=== PATIENT | female | born 1990 | race Caucasian/White ===

== ENCOUNTER 2020-07-04 12:50 | Emergency (ER) | payer OTHER ==
[~2020-07-04 12:50] MED LIST: KEFLEX CAP 500500 MG PO
[2020-07-04 13:29] LABS: HEMOGLOBIN 11.7 gm/dl (12.3-15.3); RED BLOOD COUNT 3.95 M/UL (4.00-5.10); WHITE BLOOD COUNT 10.9 K/UL (4.5-11.0)
[2020-07-04 13:50] LABS: BUN/CREATININE RATIO 23 (0-10)
[2020-07-04] MEDS ORDERED: COLACE100 MG PO (15:43)
[2020-07-04] MEDS ORDERED: ADULT GLYCERIN1 EACH PR (15:43)
[2020-07-04] MEDS ORDERED: PROTONIX40 MG PO (15:43)
[2020-07-04] MEDS ORDERED: ZOFRAN ODT 4 MG4 MG PO (15:43)
== END 2020-07-04 18:20 | disposition home or self-care (01) ==
LOC: ER1 12:50
PROVIDERS: Physician Assistant
DX: K20.90 Esophagitis, unspecified without bleeding (principal); K59.00 Constipation, unspecified
CPT/HCPCS: 71045; 80053; 81001; 83605; 83690; 84703; 85025; 87086; 96374; 96375; 99284; C9113; Q9967

== ENCOUNTER 2021-06-04 10:46 | Emergency (ER) | payer OTHER ==
[~2021-06-04 10:46] MED LIST changes: +ADULT GLYCERIN1 EACH PR; +COLACE100 MG PO; +PROTONIX40 MG PO; +ZOFRAN ODT 4 MG4 MG PO
[2021-06-04 12:33] LABS: HEMOGLOBIN 9.3 gm/dl (12.3-15.3); RED BLOOD COUNT 4.6 M/UL (4.00-5.10); WHITE BLOOD COUNT 10.3 K/UL (4.5-11.0)
[2021-06-04 13:04] LABS: BUN/CREATININE RATIO 16 (0-10)
[2021-06-04] MEDS ORDERED: SLOW RELEASE I143 MG PO (13:41)
== END 2021-06-04 14:00 | disposition home or self-care (01) ==
LOC: ER1 10:46
PROVIDERS: Physician Assistant
DX: J12.9 Viral pneumonia, unspecified (principal); D64.9 Anemia, unspecified; I10 Essential (primary) hypertension; Z20.822 Contact with and (suspected) exposure to COVID-19; Z91.011 Allergy to milk products
CPT/HCPCS: 51701; 71045; 80053; 85025; 99285; U0002

== ENCOUNTER 2021-09-13 09:57 | Inpatient (IN) | payer OTHER ==
[~2021-09-13] VITALS: Ht 157.5 cm; Wt 78.0 kg
[~2021-09-13 09:57] MED LIST changes: +SLOW RELEASE I143 MG PO
[2021-09-13 10:33] LABS: HEMOGLOBIN 13.1 gm/dl (12.3-15.3); RED BLOOD COUNT 4.53 M/UL (4.00-5.10); WHITE BLOOD COUNT 7.8 K/UL (4.5-11.0)
[2021-09-13 11:37] LABS: BUN/CREATININE RATIO 23 (0-10)
[2021-09-13] MEDS ORDERED: BENZTROPINE MESY1 MG PO (14:14)
[2021-09-13] MEDS ORDERED: VITAMIN D325 MCG PO (14:14)
[2021-09-13] MEDS ORDERED: CLONIDINE HCL0.1 MG PO (14:15)
[2021-09-13] MEDS ORDERED: DIVALPROEX SOD500 M1 PO ×2 (14:16→14:17)
[2021-09-13] MEDS ORDERED: HALOPERIDOL5 MG PO (14:17)
[2021-09-13] MEDS ORDERED: LORATADINE10 MG PO (14:18)
[2021-09-13] MEDS ORDERED: OLANZAPINE20 MG PO (14:18)
[2021-09-13] MEDS ORDERED: PROTONIX 40 MG40 M1 PO (14:19)
[2021-09-13] MEDS ORDERED: PAROXETINE HCL20 MG PO (14:20)
[2021-09-13] MEDS ORDERED: GAVILAX17 GM PO (14:20)
[2021-09-13] MEDS ORDERED: TOPIRAMATE25 MG PO (14:21)
[2021-09-13] MEDS ORDERED: CLONAZEPAM1 MG PO (14:21)
[2021-09-13] MEDS ORDERED: MEDROXYPRO150 MG/11 IM (14:22)
[2021-09-13] MEDS ORDERED: DOCUSATE SODIU100 MG PO (14:26)
[2021-09-15 06:38] LABS: HEMOGLOBIN 14.6 gm/dl (12.3-15.3); RED BLOOD COUNT 4.97 M/UL (4.00-5.10); WHITE BLOOD COUNT 9.2 K/UL (4.5-11.0)
[2021-09-15 06:47] LABS: BUN/CREATININE RATIO 8 (0-10)
[2021-09-15] MEDS ORDERED: LEVOFLOXACIN750 MG PO (12:04)
[2021-09-15] MEDS ORDERED: ZOFRAN 4 MG4 MG/5 ML PO (12:11)
== END 2021-09-15 13:57 | disposition home or self-care (01) | DRG 690 ==
LOC: ER1 09:57 → CDU 14:06 → M/S 14:06
PROVIDERS: Emergency Medicine; Physician Assistant Medical; ADMIT Internal Medicine
DX: N30.00 Acute cystitis without hematuria (principal); G80.9 Cerebral palsy, unspecified; F41.9 Anxiety disorder, unspecified; Z20.822 Contact with and (suspected) exposure to COVID-19; B96.20 Unspecified Escherichia coli [E. coli] as the cause of diseases classified elsewhere; E86.0 Dehydration; E66.9 Obesity, unspecified; D69.6 Thrombocytopenia, unspecified; I48.91 Unspecified atrial fibrillation; Z79.01 Long term (current) use of anticoagulants; Z68.31 Body mass index [BMI] 31.0-31.9, adult
CPT/HCPCS: 36415; 71045; 80048; 80053; 81001; 82550; 82553; 83605; 83735; 83880; 84484; 84703; 85025; 85027; 85379; 87040; 87077; 87086; 87186; 93005; 96374; 99285; J0696

== ENCOUNTER 2021-10-12 16:08 | Emergency (ER) | payer OTHER ==
[~2021-10-12 16:08] MED LIST changes: +BENZTROPINE MESY1 MG PO; +CLONAZEPAM1 MG PO; +CLONIDINE HCL0.1 MG PO; +DIVALPROEX SOD500 M1 PO; +DOCUSATE SODIU100 MG PO; +GAVILAX17 GM PO; +HALOPERIDOL5 MG PO; +LEVOFLOXACIN750 MG PO; +LORATADINE10 MG PO; +MEDROXYPRO150 MG/11 IM; +OLANZAPINE20 MG PO; +PAROXETINE HCL20 MG PO; +PROTONIX 40 MG40 M1 PO; +TOPIRAMATE25 MG PO; +VITAMIN D325 MCG PO; +ZOFRAN 4 MG4 MG/5 ML PO
[2021-10-12 17:43] LABS: HEMOGLOBIN 13.1 gm/dl (12.3-15.3); RED BLOOD COUNT 4.32 M/UL (4.00-5.10); WHITE BLOOD COUNT 8.3 K/UL (4.5-11.0)
[2021-10-12 18:06] LABS: BUN/CREATININE RATIO 27 (0-10)
[2021-10-12] MEDS ORDERED: OMNICEF 300 MG300 MG PO (19:16)
== END 2021-10-12 19:28 | disposition home or self-care (01) ==
LOC: ER1 16:08
PROVIDERS: Emergency Medicine
DX: N30.90 Cystitis, unspecified without hematuria (principal); K21.9 Gastro-esophageal reflux disease without esophagitis; K59.00 Constipation, unspecified
CPT/HCPCS: 80053; 81001; 84703; 85025; 87077; 87086; 87186; 96374; 99284; J0696; Q9967

== ENCOUNTER → 2021-12-09 | Outpatient (CLI) | payer OTHER ==
[~2021-12-09] MED LIST changes: +OMNICEF 300 MG300 MG PO
[2021-12-09 11:59] LABS: HEMOGLOBIN 15.1 gm/dl (12.3-15.3); RED BLOOD COUNT 4.9 M/UL (4.00-5.10); WHITE BLOOD COUNT 10.1 K/UL (4.5-11.0)
[2021-12-09 12:23] LABS: BUN/CREATININE RATIO 22 (0-10)
[2021-12-10 09:14] LABS: THYROXINE (T4) 9.4 ug/dL (4.5-12.0)
== END ==
LOC: LAB 11:04
PROVIDERS: Nurse Practitioner Family
DX: Z13.1 Encounter for screening for diabetes mellitus (principal); N32.89 Other specified disorders of bladder; N39.0 Urinary tract infection, site not specified; F84.0 Autistic disorder; K21.9 Gastro-esophageal reflux disease without esophagitis; G80.9 Cerebral palsy, unspecified; R53.83 Other fatigue
CPT/HCPCS: 36415; 80053; 80061; 81001; 83036; 84436; 84443; 84480; 85025; 87077; 87086; 87186